=== PATIENT | female | born 1985 | race Two or more races ===

== ENCOUNTER 2019-02-06 14:27 | Outpatient (CLI) | payer OTHER | END 2019-02-06 14:42 | disposition home or self-care (01) | LOC: LAB 14:27 → EDBD 14:27 → LAB 14:42 | DX: D50.8 Other iron deficiency anemias (principal); E08.65 Diabetes mellitus due to underlying condition with hyperglycemia; D51.8 Other vitamin B12 deficiency anemias; I10 Essential (primary) hypertension; D89.2 Hypergammaglobulinemia, unspecified; D55.0 Anemia due to glucose-6-phosphate dehydrogenase [G6PD] deficiency; D51.1 Vitamin B12 deficiency anemia due to selective vitamin B12 malabsorption with proteinuria ==

== ENCOUNTER 2019-06-10 08:01 | Outpatient (CLI) | payer OTHER | END 2019-06-10 08:21 | disposition home or self-care (01) | LOC: LAB 08:01 | DX: D89.2 Hypergammaglobulinemia, unspecified (principal); E08.65 Diabetes mellitus due to underlying condition with hyperglycemia; D50.8 Other iron deficiency anemias; D51.8 Other vitamin B12 deficiency anemias ==